=== PATIENT | female | born 1990 | race Caucasian/White ===

== ENCOUNTER → 2021-01-22 | Outpatient (CLI) | payer BC ==
[2021-01-22 21:08] LABS: T4, Free (Free Thyroxine) 1.4 ng/dL (0.800-1.800)
== END | disposition home or self-care (01) ==
LOC: LABWHC1 12:11
PROVIDERS: ATTEND Nurse Practitioner Adult Health
DX: E03.9 Hypothyroidism, unspecified (principal)
CPT/HCPCS: 36415; 84439; 84443; 84481

== ENCOUNTER → 2021-10-15 | Outpatient (CLI) | payer BC ==
[2021-10-15 19:27] LABS: T4, Free (Free Thyroxine) 1.36 ng/dL (0.800-1.800)
== END | disposition home or self-care (01) ==
LOC: LABWHC1 13:15
PROVIDERS: ATTEND Family Medicine
DX: E03.9 Hypothyroidism, unspecified (principal)
CPT/HCPCS: 36415; 84439; 84443; 84481

== ENCOUNTER → 2022-03-22 | Outpatient (CLI) | payer BC ==
[2022-03-22 17:58] LABS: Basophils # (A) 0.01 X 10*3/uL (0.00-0.10); Basophils % (A) 0.1 %; Eosinophils # (A) 0.17 X 10*3/uL (0.04-0.35); Eosinophils % (A) 2.3 %; HCT 41.5 % (37.2-46.3); Immature Grans, Automated 0.3 %; Lymphocytes # (A) 2.16 X 10*3/uL (0.90-5.00); Lymphocytes % (A) 29.3 %; MCH 31.3 pg (27.0-32.0); MCHC 31.3 g/dL (32.0-37.0); MCV 99.8 fL (80.0-97.0); Monocytes # (A) 0.34 X 10*3/uL (0.20-1.00); Monocytes % (A) 4.6 %; NRBC Per 100 WBC 0 /100 WBCS (0.0-0.0); Neutrophils # (A) 4.66 X 10*3/uL (1.80-7.70); Neutrophils % (A) 63.4 %; Platelet Count 312 X 10*3/uL (140-440); RBC 4.16 X 10*6/uL (4.10-5.20); RDW 12.2 % (11.5-14.5); WBC 7.36 X 10*3/uL (4.50-10.00)
[2022-03-22 18:15] LABS: ALT 21 U/L (8-44); AST 17 U/L (13-35); African American GFR (CKD) 134.7 (60.0-200.0); Albumin 4.6 g/dL (3.8-4.9); Alkaline Phosphatase 32 U/L (41-126); BUN/Creat Ratio 16.43 Ratio (12.00-20.00); Blood Urea Nitrogen 11.5 mg/dL (9.0-27.0); Calcium 9.8 mg/dL (8.7-10.3); Carbon Dioxide 23.1 mmol/L (20.0-27.5); Chloride 103 mmol/L (96-109); Chol/HDL Ratio 4.53 Ratio; Globulin 2.7 g/dL (1.6-3.3); Glucose 86 mg/dL (70-110); LDL Cholesterol,Calculated 109.4 mg/dL (0.0-131.0); Non-African American GFR(CKD) 116.3 (60.0-200.0); Potassium 4.8 mmol/L (3.5-5.5); Sodium 140 mmol/L (135-145); Total Protein 7.3 g/dL (6.2-8.2)
== END | disposition home or self-care (01) ==
LOC: LABWHC1 12:23
PROVIDERS: ATTEND Nurse Practitioner Adult Health
DX: Z00.00 Encounter for general adult medical examination without abnormal findings (principal); E03.9 Hypothyroidism, unspecified; R63.5 Abnormal weight gain
CPT/HCPCS: 36415; 80053; 80061; 82533; 83036; 83525; 84439; 84443; 85025

== ENCOUNTER → 2024-09-21 | Outpatient (CLI) | payer BC ==
[2024-09-21 15:12] LABS: Basophils # (A) 0.01 X 10*3/uL (0.00-0.10); Basophils % (A) 0.2 %; Eosinophils # (A) 0.12 X 10*3/uL (0.04-0.35); Eosinophils % (A) 1.9 %; HCT 41.8 % (37.2-46.3); HGB 13.5 g/dL (12.0-15.0); Immature Grans, Automated 0.20 %; Lymphocytes # (A) 2.22 X 10*3/uL (0.90-5.00); Lymphocytes % (A) 34.3 %; MCH 32.3 pg (27.0-32.0); MCHC 32.3 g/dL (32.0-37.0); MCV 100.0 FL (80.0-97.0); Monocytes # (A) 0.42 X 10*3/uL (0.20-1.00); Monocytes % (A) 6.5 %; NRBC Per 100 WBC 0 X 10*3/uL (0.00-0.01); Neutrophils # (A) 3.69 X 10*3/uL (1.80-7.70); Neutrophils % (A) 56.9 %; Platelet Count 252 X 10*3/uL (140-440); RBC 4.18 X 10*6/uL (4.10-5.20); RDW 11.9 % (11.5-14.5); WBC 6.47 X 10*3/uL (4.50-10.00)
[2024-09-21 16:11] LABS: ALT 22 U/L (8-44); AST 20 U/L (13-35); Albumin 4.4 g/dL (3.8-4.9); Albumin/Globulin Ratio 2.00 Ratio (1.60-3.17); Alkaline Phosphatase 49 U/L (41-126); Anion Gap 12.20 mmol/L (4.00-12.00); BUN/Creat Ratio 14.29 Ratio (12.00-20.00); Blood Urea Nitrogen 10.0 mg/dL (9.0-27.0); Calcium 9.3 mg/dL (8.7-10.3); Carbon Dioxide 24.8 mmol/L (21.6-31.8); Chloride 105 mmol/L (96-109); Cholesterol 198.00 mg/dL (0.00-200.00); Globulin 2.2 g/dL (1.6-3.3); Glucose 103 mg/dL (70-110); HDL Cholesterol 61.90 mg/dL (40.00-60.00); LDL Cholesterol,Calculated 118.9 mg/dL (0.0-131.0); Potassium 4.2 mmol/L (3.5-5.5); Sodium 142 mmol/L (135-145); T4, Free (Free Thyroxine) 1.53 ng/dL (0.80-1.80); Total Protein 6.6 g/dL (6.2-8.2); Triglycerides 85.80 mg/dL (0.00-149.00); VLDL Calculation 17.16 mg/dL (5.00-40.00)
== END | disposition home or self-care (01) ==
LOC: LABWHC1 10:30
PROVIDERS: ATTEND Family Medicine
DX: Z00.00 Encounter for general adult medical examination without abnormal findings (principal); E03.9 Hypothyroidism, unspecified
CPT/HCPCS: 36415; 80053; 80061; 84439; 84443; 85025